=== PATIENT | female | born 1995 | race Two or more races ===

== ENCOUNTER 2023-09-04 13:27 | Emergency (ER) | payer OTHER ==
[2023-09-04 13:33] VITALS: BP 108/50; PULSE 113; RESP 18; TEMP 100.5; BMI 21.8
[2023-09-04] MEDS ORDERED: ACETAMINOPHEN 500 MG TABLET (FP) PO ONE (14:38)
[2023-09-04] MEDS ORDERED: ACETAMINOPHEN 500 MG TABLET (FP) ONE (14:51)
== END 2023-09-04 14:57 | disposition home or self-care (01) ==
LOC: JERFT 13:27
DX: O26.891 Other specified pregnancy related conditions, first trimester (principal); R50.9 Fever, unspecified; R09.81 Nasal congestion; O99.511 Diseases of the respiratory system complicating pregnancy, first trimester; J06.9 Acute upper respiratory infection, unspecified; Z3A.10 10 weeks gestation of pregnancy; Z20.822 Contact with and (suspected) exposure to COVID-19
CPT/HCPCS: 0241U-QW; 87651; 99283-25

== ENCOUNTER 2023-12-03 16:17 | Emergency (ER) | payer OTHER ==
[2023-12-03 16:29] VITALS: BP 115/58; PULSE 96; RESP 18; TEMP 98.9; BMI 22.3
[2023-12-03] MEDS ORDERED: ACETAMINOPHEN 325 MG TABLET (FP) ONE (18:06)
[2023-12-03] MEDS: ACETAMINOPHEN 500 MG TABLET (FP) PO ONE (18:25)
[2023-12-03] MEDS ORDERED: DIPHTH,PERTUSS(ACELL),TET 0.5 ML DISP.SYRIN IM ONE (18:26)
[2023-12-03] MEDS: DIPHTH,PERTUSS(ACELL),TET 0.5 ML DISP.SYRIN IM ONE (18:30)
== END 2023-12-03 20:35 | disposition home or self-care (01) ==
LOC: JERFT 16:17
PROC: 0HQGXZZ Repair Left Hand Skin, External Approach (ICD-10-PCS; principal; 2023-12-03)
PROC: 3E0234Z Introduction of Serum, Toxoid and Vaccine into Muscle, Percutaneous Approach (ICD-10-PCS; 2023-12-03)
DX: O9A.212 Injury, poisoning and certain other consequences of external causes complicating pregnancy, second trimester (principal); S61.412A Laceration without foreign body of left hand, initial encounter; Z3A.24 24 weeks gestation of pregnancy; W25.XXXA Contact with sharp glass, initial encounter
CPT/HCPCS: 12001-25; 73130-TC-LT-FY; 90471; 90715; 99283-25